=== PATIENT | female | born 1975 | race Asian ===

== ENCOUNTER 2017-10-01 05:09 | Emergency (ER) | payer OTHER ==
[~2017-10-01] VITALS: Ht 162.6 cm; Wt 84.5 kg
[~2017-10-01 05:09] MED LIST: DAILY VALUE1 EACH PO; PROTONIX40 MG PO
[2017-10-01 05:57] LABS: HEMOGLOBIN 12.1 G/DL (11.9-15.5); MCH 27.6 PG (29.0-34.0); MCHC 32.7 G/DL (30.0-36.0); MCV 84.3 FL (83-99); PLATELET COUNT 230 K/uL (156-360); RBC DIS.WIDTH-CV 13.1 % (11.8-14.6); RED BLOOD COUNT 4.39 M/uL (3.80-5.20); WHITE BLOOD COUNT 7.4 K/uL (4.1-10.2)
[2017-10-01 06:10] LABS: CHLORIDE 108 mEq/L (99-109); POTASSIUM 3.5 mEq/L (3.7-5.4); SODIUM 137 mEq/L (136-147)
[2017-10-01 06:12] LABS: GLUCOSE 109 mg/dL (70-99)
[2017-10-01 06:14] LABS: TOTAL BILIRUBIN 0.3 mg/dL (0.0-1.0)
[2017-10-01 06:15] LABS: ALKALINE PHOSPHATASE 57 IU/L (3-129)
[2017-10-01 06:16] LABS: CREATININE 0.8 mg/dL (0.6-1.3); GFR ESTIMATE (CALCULATED) > 59 mL/min/
[2017-10-01 06:17] LABS: AST (GOT) 14 IU/L (2-34); UREA NITROGEN (BUN) 16 mg/dL (9-23)
[2017-10-01 06:18] LABS: ALT (GPT) 13 IU/L (3-49)
[2017-10-01 06:19] LABS: LIPASE 24 U/L (1.0-51.0)
[2017-10-01 06:25] LABS: QUANTITATIVE HCG < 4.0 MIU/ML
[2017-10-01 06:26] LABS: APPEARANCE CLOUDY ((CLEAR)); BILIRUBIN NEGATIVE; BLOOD SMALL; COLOR YELLOW ((YELLOW)); GLUCOSE (STRIP) NEGATIVE; KETONES NEGATIVE; LEUKOCYTES LARGE; NITRITE NEGATIVE; PROTEIN (STRIP) NEGATIVE; SPECIFIC GRAVITY 1.006 (1.000-1.030); UROBILINOGEN 0.2 MG/DL (0.2-1.0)
[2017-10-01 06:53] LABS: RED BLOOD CELLS 0-5 /HPF (0-5)
[2017-10-01 06:54] LABS: BACTERIA 1+ /HPF; EPITHELIAL CELLS 2+ /HPF; MUCUS NONE SEEN /LPF; UCUL ADDED? YES; WHITE BLOOD CELLS 20-30 /HPF (0-5)
[2017-10-01] MEDS ORDERED: MACROBID100 MG PO (07:33)
[2017-10-01] MEDS ORDERED: MECLIZINE HCL25 MG PO (07:33)
[2017-10-01 08:09] VITALS: BP 132/88
== END 2017-10-01 08:42 | disposition home or self-care (01) ==
LOC: EME 05:09
PROVIDERS: Emergency Medicine
DX: H81.399 Other peripheral vertigo, unspecified ear (principal); N30.91 Cystitis, unspecified with hematuria
CPT/HCPCS: 70450; 80053; 81003; 83690; 84702; 85027; 87086; 93005; 99281; 99284; J7030